=== PATIENT | female | born 1995 | race Caucasian/White ===

== ENCOUNTER 2020-04-30 21:01 | Emergency (ER) | payer OTHER, SELFPAY ==
[2020-04-30 21:29] VITALS: BP 131/73; PULSE 72; RESP 16; TEMP 36.8; O2SAT 95; BMI 33.2
--- NOTE | 2020-04-30 22:21 | ED.GENADULT ---
HPI - General Adult General Chief complaint: General Medical Stated complaint: vomiting Time Seen by Provider: 04/30/20 22:21 Source: patient Mode of arrival: ambulatory Limitations: no limitations History of Present Illness HPI narrative: Patient with increased anxiety after of her brother few months ago unable to sleep well complaining of multiple complaints felt dizzy very anxious unable to sleep the night time nausea denied any urinary symptoms unlikely to be Related Data Previous Rx's Medication Instructions Recorded lorazepam [Ativan] 1 mg PO BEDTIME PRN #14 tab 04/30/20 Allergies Allergy/AdvReac Type Severity Reaction Status Date / Time No Known Allergies Allergy Unverified 12/11/19 19:40 [No Known Allergies*] Review of Systems Review of Systems: Yes all other systems are reviewed and are negative [facility] Social History Social History Advance Directives: No Advance Directives Information Provided: Yes Physical Exam Vital Signs: Vital Signs: Last Vital Signs Temp 98.2 F 04/30/20 21:29 Pulse 72 04/30/20 21:29 Resp 16 04/30/20 21:29 BP 131/73 04/30/20 21:29 Pulse Ox 95 04/30/20 21:29 Body Mass Index 33.2 Appearance: Alert. Oriented X3. No acute distress. Very anxious Eyes: Pupils equal, round and reactive to light. ENT: Pharynx normal. Neck: Normal inspection. Neck supple. CVS: Normal heart rate and rhythm. Pulses normal. Respiratory: No respiratory distress. Breath sounds normal. Abdomen: Soft and nontender. Bowel sounds are present, no mass palpable, no CVA tenderness Skin: Skin warm and dry. Normal skin color. Normal skin turgor. Extremities: No lower extremity edema. Neuro: Oriented X 3. No motor deficit. No sensory deficit. Course Course Course Narrative: Patient with anxiety secondary to loss of her brother few months ago will give her Ativan to relax and sleep. Medical Decision Making Lab Data Lab results reviewed: Yes I reviewed the patient's lab results. Labs: Lab Results 04/30/20 Range/Units 22:32 Urine Color YELLOW Urine Appearance CLEAR Urine pH 7.0 (5.0-8.0) Ur Specific [place] 1.025 (1.005-1.025) Urine Protein NEG (NEG-TRACE) MG/DL Urine Glucose (UA) NEG (NEG) MG/DL Urine Ketones 40 (NEG) MG/DL Urine Blood TRACE (NEG) Urine Nitrite NEG (NEG) Ur Leukocyte Esterase NEG (NEG) Urine RBC 0-2 (0) /HPF Urine WBC 0 (0-4) /HPF Ur Squamous Epith Cells NONE /LPF Urine Bacteria 1+ /LPF Urine Mucus 1+ /LPF Urine Test NEGATIVE (NEGATIVE) Discharge Plan Discharge Clinical Impression: Anxiety Patient Disposition: Home, Self-Care Instructions: Anxiety (ED) Additional Instructions: Rest at home take medication for sleep and anxiety as advised Prescriptions: New lorazepam [Ativan] 1 mg tablet 1 mg PO BEDTIME PRN (Reason: anxiety) Qty: 14 RF: 0
[2020-04-30 22:39] LABS: Glucose Urine UA NEG (NEG); Leukocyte Esterase Urine NEG (NEG); Nitrite Urine NEG (NEG); Specific Gravity - Urine 1.025 (1.005-1.025); Urine Blood TRACE (NEG); Urine Ketones 40 MG/DL (NEG); Urine Protein NEG (NEG-TRACE)
[2020-04-30 22:40] LABS: Appearance Urine CLEAR; Color Urine YELLOW
[2020-04-30 22:41] LABS: UPreg QC Valid YES; Urine Pregnancy NEGATIVE (NEGATIVE)
[2020-04-30 22:47] LABS: Bacteria Urine 1+ /LPF; Mucus Urine 1+ /LPF; RBC Urine 0-2 /HPF (0); WBC Urine 0 /HPF (0-4)
[2020-05-01] VITALS: BP 128/80; PULSE 79; RESP 16; TEMP 36.6; O2SAT 96
[2020-05-01] MEDS: LORazepam 1 MG TABLET PO (00:25)
[2020-05-01 00:30] LABS: Glucose, Whole Blood 93 mg/dL (60-115)
== END 2020-05-01 00:39 | disposition home or self-care (01) ==
PROVIDERS: Emergency Provider Internal Medicine; PCP Pediatrics
DX: F41.9 Anxiety disorder, unspecified (principal); Z63.4 Disappearance and death of family member
CPT/HCPCS: 81001; 81025; 82947; 99283; 99284

== ENCOUNTER 2021-09-05 12:54 | Emergency (ER) | payer OTHER, SELFPAY ==
[2021-09-05 13:06] VITALS: BP 136/83; PULSE 78; RESP 18; TEMP 36.1; O2SAT 98; BMI 32.8
[2021-09-05 13:34] LABS: Strep A Nucleic Acid Negative (Negative)
[2021-09-05 13:36] LABS: COVID-19 Test Negative (Negative); IDNOW Serial# 16C4AD1C
--- NOTE | 2021-09-05 15:08 | ED.URI ---
HPI - URI/Sore Throat General Chief Complaint: General Medical Stated Complaint: possible pink eye/congestion/coughing Time Seen by Provider: 09/05/21 14:56 Source: patient Mode of arrival: ambulatory Limitations: no limitations History of Present Illness HPI Narrative: 26-year-old female presenting to the ED with complaints of purulent discharge from her bilateral eyes with associated nasal congestion / rhinorrhea and a sore throat. Reports that her kids had similar symptoms a week ago and were treated for the same thing. She denies any recent travel or any other sick contacts. She denies any fevers, dizziness, trouble swallowing or breathing, chest pain or shortness of breath, cough, nausea/vomiting / diarrhea constipation, rashes, dysuria or any other symptoms complaints or concerns at this time. MD elicited complaint: sore throat, rhinorrhea, nasal congestion and other (and purulent discharge ) Onset (ago): day(s) ( For the past few days worse today) Consistency: constant and progressively worsening Severity: mild Description of mucous: clear, watery and yellow Able to tolerate fluids by mouth: Yes Exacerbating factors: swallowing Relieving factors: nothing Context: sick contacts ( kids with similar symptoms) Associated symptoms: chills, myalgias, rhinorrhea, nasal congestion, sore throat and other ( purulent drainage from bilateral eyes) Treatments prior to arrival: none Related Data Previous Rx's Medication Instructions Recorded lorazepam 1 mg tablet (Ativan) 1 mg PO BEDTIME PRN anxiety #14 04/30/20 tabs amoxicillin 875 mg-potassium 1 tab PO BID 10 days #20 tabs 09/05/21 clavulanate 125 mg tablet erythromycin 5 mg/gram (0.5 %) eye 0.5 inch ophthalmic (eye) QID 09/05/21 ointment Bacterial conjunctivitis 7 days #3.5 grams Allergies Allergy/AdvReac Type Severity Reaction Status Date / Time No Known Allergies Allergy Verified 09/05/21 13:06 [No Known Allergies*] Review of Systems Review of Systems: Constitutional : No Weight loss, No Fever, No Chills, No Night Sweats, No Fatigue, No Malaise ENT/Mouth : + nasal congestion/ rhinorrhea/ sore throat, No Hearing loss, No Ear Pain, No Sinus Pain, No Hoarseness, No Swallowing Difficulty Eyes: + discharge from bilateral eyes/eye redness, No Eye Pain, No Swelling, No Foreign Body, No Vision Changes Cardiovascular : No Chest Pain, No SOB, No Dyspnea on Exertion, No Orthopnea, No Edema, No Palpitations Respiratory : No Cough, No Sputum, No Wheezing, No Smoke Exposure, No Dyspnea Gastrointestinal : No Nausea, No Vomiting, No Diarrhea, No Constipation, No abdominal Pain, No Hematochezia, No Melena Genitourinary : no irregular bleeding, No Dysuria, No Urinary Frequency, No Hematuria, No Urinary Incontinence, No Urgency, No Flank Pain, No Urinary Flow Changes, No Hesitancy Musculoskeletal : No joint pain, No Myalgias, No Joint Swelling Skin : No Skin Lesions, No rash Neuro : No Weakness, No Numbness, No Paresthesias, No Loss of Consciousness, No Dizziness, No Headache Psych : No Anxiety/Panic, No Depression, No SI/HI/AH/VH, No Social Issues, Heme/Lymph: No Bruising, No Bleeding,No Lymphadenopathy Endocrine : No Polyuria, No Polydipsia, No Temperature Intolerance Yes all other systems are reviewed and are negative [facility] Past Medical History Attestation statement: The following information was validated with the patient. Source: old records reviewed and nursing notes reviewed Social History Social History Advance Directives: No Advance Directives Information Provided: Yes Physical Exam Vital Signs: Vital Signs: Last Vital Signs Temp 97.0 F 09/05/21 13:06 Pulse 78 09/05/21 13:06 Resp 18 09/05/21 13:06 BP 136/83 09/05/21 13:06 Pulse Ox 98 09/05/21 13:06 O2 Del Method 09/05/21 13:06 BMI result Body Mass Index 32.8 vital signs have been reviewed as normal and appeared to be correct. Blood pressure normal. Heart rate normal. Respiration rate normal. Temperature normal. Oxygen saturation normal. Appearance: Alert. Oriented X3. No acute distress. Head: Normal external exam. Normocephalic. Atraumatic. Eyes: PERRLA. EOMI. Bilateral conjunctiva /clear erythematous with purulent discharge consistent with bacterial conjunctivitis. Eyelids normal. ENT: EAC normal. TM's Normal. posterior pharynx mildly erythematous with scattered exudate noted. Uvula midline. Moist mucous membranes. No lesions/ulcerations or masses noted on the tongue. Normal voice. No trismus noted. No drooling noted. No muffled voice noted. Neck: Normal inspection. Neck supple. FROM. No adenopathy. Thyroid Normal. No tracheal deviation noted. No crepitus is noted. No meningeal signs. No neck mass noted. No signs of trauma noted. CVS: Normal heart rate and rhythm. Heart sound normal. Pulses normal throughout. No murmurs/rales/gallops. Respiratory: No respiratory distress. Painless inspiration. Breath sounds normal. No wheezes/rales/rhonchi noted. Chest nontender. No crepitus is noted. No signs of trauma noted. No accessory muscle usage noted or decreased air movement noted. No signs of trauma. Abdomen: Soft and nontender. Bowel sounds normal in all 4 quadrants. No distention noted. No organomegaly noted. No visible injury noted. Back: No CVA tenderness. Full range of motion noted. Nontender. No signs of trauma. Patient neuro intact bilaterally and distally on all 4 extremities. Patient's reflexes intact bilaterally and distally on all 4 extremities. No rashes/lesion/induration/fluctuance or signs of infection noted. Skin: Skin warm and dry. Normal skin color. Normal skin turgor. No rashes/lesions/lacerations noted. Extremities: No lower extremity edema. No calf tenderness is noted. Extremities exhibit normal range of motion and nontender. Neuro: Oriented X 3. No motor deficit. No sensory deficit. Reflexes normal. Normal steady gait. No focal neuro deficits noted. CN's II-XII intact bilaterally? Vascular: + radial pulses/+ 2 distal pedal pulses/+2 dorsalis pedis b/l. Normal cap refill. No cyanosis noted to upper extremity nails and lower extremity toes nails. Course Course Course Narrative: Patient with bacterial conjunctivitis and on exam it appears like acute bacterial pharyngitis will treat as patient had her kids that were treated for similar last week. Otherwise she is negative for COVID. Will instruct to follow-up with PCP and to return if any new or worsening symptoms. Patient understands agrees with this plan. MDM - URI/Sore Throat Medical Records Attestation: I reviewed the patient's medical records. Lab Data Attestation: I reviewed the patient's lab results. Labs: Lab Results 09/05/21 09/05/21 Range/Units 13:10 13:10 COVID-19 (JANET) Negative (Negative) COVID-19 Clin Com See Note S. pyogenes GrpA GILBERTO Negative (Negative) Discharge Plan Discharge Clinical Impression: Acute bacterial conjunctivitis, Acute bacterial pharyngitis Patient Disposition: Home, Self-Care Instructions: Pharyngitis (ED), Conjunctivitis (ED) Additional Instructions: You were negative for COVID. Return if any new or worsening symptoms. Follow up with your primary care provider. Prescriptions: New erythromycin 5 mg/gram (0.5 %) ointment 0.5 inch ophthalmic (eye) QID 7 Days Qty: 3.5 0RF amoxicillin-pot clavulanate 875-125 mg tablet 1 tab PO BID 10 Days Qty: 20 0RF No Action lorazepam [Ativan] 1 mg tablet 1 mg PO BEDTIME PRN (Reason: anxiety) Qty: 14 0RF Referrals: Physician,None [Primary Care Provider] - 2 days (your pcp) Stand Alone Forms: Work/School Release Print Language: Croatian
[2021-09-05] MEDS: Erythromycin Base 0.5% Oph Oin 1 GM TUBE 1 CM EYE-BOTH (15:38)
== END 2021-09-05 15:40 | disposition home or self-care (01) ==
PROVIDERS: Emergency Provider Emergency Medicine
DX: J02.8 Acute pharyngitis due to other specified organisms (principal); H10.33 Unspecified acute conjunctivitis, bilateral; Z20.822 Contact with and (suspected) exposure to COVID-19
CPT/HCPCS: 87635; 87651; 99283